=== PATIENT | male | born 1965 ===

== ENCOUNTER 2017-01-27 21:02 | Observation (INO) | payer OTHER ==
[2017-01-27 21:06] VITALS: BMI 30.3
[2017-01-27 21:26] LABS: BASO # 0.03 K/mm3 (0.0-2.0); BASO % 0.5 % (0.0-3.0); EOS # 0.4 (0.0-0.7); EOS % 5.8 % (1.5-5.0); GRAN # 1.67 (1.4-6.5); HEMATOCRIT 45.9 % (42.0-52.0); LYMPH # 3.4 (1.2-3.4); LYMPH % 54.9 % (22.0-35.0); MEAN CELL VOLUME 88.6 fl (80.0-105.0); MEAN CORPUSCULAR HEMOGLOBIN 30.1 pg (25.0-35.0); MEAN PLATELET VOLUME 10.4 fl (7.0-11.0); MONO # 0.7 (0.1-0.6); MONO % 11.8 % (1.0-6.0); RED CELL DISTRIBUTION WIDTH 14.4 % (11.5-14.5); WHITE BLOOD COUNT 6.2 10^3/ul (4.5-11.0)
[2017-01-27 21:39] LABS: ALB/GLOB RATIO 1.5 (1.1-1.8); ALKALINE PHOSPHATASE 87 U/L (38-126); ALT/SGPT 21 U/L (7-56); AST/SGOT 22 U/L (17-59); BILIRUBIN,TOTAL 0.5 mg/dL (0.2-1.3); BLOOD UREA NITROGEN 19 mg/dL (7-21); CALCIUM 9.7 mg/dL (8.4-10.5); CARBON DIOXIDE 31 mmol/L (21-33); CHLORIDE 102 mmol/L (98-107); GFR AFRICAN-AMERICAN > 60; GLUCOSE,RANDOM 120 mg/dL (70-110); POTASSIUM 4.2 mmol/L (3.6-5.0); SODIUM 142 mmol/L (132-148); TOTAL PROTEIN 7.3 g/dL (5.8-8.3)
--- NOTE | 2017-01-27 21:50 | ED PDOC ---
Arrival/HPI - General Chief Complaint: Chest Pain Time Seen by Provider: 01/27/17 21:15 Historian: Patient - History of Present Illness Narrative History of Present Illness (Text): 01/27/17 21:44 A 51 year old male, whose past medical history includes 2 cardiac stents placed 2 years ago, presents to the emergency department complaining of intermittent chest pain for 2 weeks. Patient states his pain worsened today and notes radiating pain down left arm. Patient notes mild shortness of breath but denies any fever, chills, nausea, vomiting, abdominal pain, cough or any other complaints. Patients last cardiac workup was 1 year ago. Pet Feeder: Dr. Graeme Martin Time/Duration: Other (2 weeks) Symptom Course: Worsening (today) Quality: Other Context: Home Past Medical History - Provider Review Nursing Documentation Reviewed: Yes - Infectious Disease Hx of Infectious Diseases: None - Tetanus Immunization Tetanus Immunization: Unknown - Cardiac Hx [place]: Yes - Pulmonary Hx Respiratory Disorders: No - Neurological Hx Paralysis: No - HEENT Hx HEENT Disorder: No - Renal Hx Renal Disorder: Yes Hx Kidney Stones: Yes (S/P Trasnurethral Removal) - Endocrine/Metabolic Hx Endocrine Disorders: Yes Hx Diabetes Mellitus Type 2: Yes - Hematological/Oncological Hx Blood Transfusions: No - Integumentary Hx Dermatological Disorder: No - Musculoskeletal/Rheumatological Hx Musculoskeletal Disorders: No - Gastrointestinal Hx Gastrointestinal Disorders: No - Genitourinary/Gynecological Hx Genitourinary Disorders: No - Psychiatric Hx Emotional Abuse: No Hx Physical Abuse: No Hx Substance Use: No - Past Surgical History Past Surgical History: Non-Contributing - Surgical History Hx Cardiac Catheterization: Yes - Anesthesia Hx Anesthesia: Yes Hx Anesthesia Reactions: No Hx Malignant Hyperthermia: No - Suicidal Assessment Feels Threatened In Home Enviroment: No Family/Social History - Physician Review Nursing Documentation Reviewed: Yes Family/Social History: No Known Family HX Smoking Status: Never Smoked Hx Alcohol Use: No Hx Substance Use: No Hx Substance Use Treatment: No Allergies/Home Meds Allergies/Adverse Reactions: Allergies No Known Allergies Allergy (Verified 12/16/15 10:15) Home Medications: Home Meds Medication Instructions Recorded Confirmed Insulin Detemir [Levemir Flexpen] 18 unit SC BID 08/29/14 01/27/17 Clopidogrel [Plavix] 75 mg PO DAILY 09/20/14 01/27/17 Aspirin [Aspirin EC] 81 mg PO DAILY 10/12/15 09/07/17 Canagliflozin/Metformin HCl 1 tab PO BID 12/16/15 01/27/17 [Invokamet 50-1,000 mg Tablet] Review of Systems - Physician Review All systems were reviewed & negative as marked: Yes - Review of Systems Constitutional: absent: Fevers, Night Sweats Respiratory: SOB. absent: Cough Cardiovascular: Chest Pain (radiating down left arm) Gastrointestinal: absent: Abdominal Pain, Nausea, Vomiting Physical Exam Vital Signs Reviewed: Yes Vital Signs Temp Pulse Resp BP Pulse Ox 01/27/17 21:07 98.1 F 60 19 146/84 100 Temperature: Afebrile Blood Pressure: Normal Pulse: Regular Respiratory Rate: Normal Appearance: Positive for: Well-Appearing, Non-Toxic, Comfortable Pain Distress: None Mental Status: Positive for: Alert and Oriented X 3 - Systems Exam Head: Present: Atraumatic, Normocephalic Pupils: Present: PERRL Extroacular Muscles: Present: EOMI Conjunctiva: Present: Normal Mouth: Present: Moist Mucous Membranes Neck: Present: Normal Range of Motion Respiratory/Chest: Present: Clear to Auscultation, Good Air Exchange. No: Respiratory Distress, Accessory Muscle Use Cardiovascular: Present: Regular Rate and Rhythm, Normal S1, S2. No: Murmurs Abdomen: Present: Normal Bowel Sounds. No: Tenderness, Distention, Peritoneal Signs Back: Present: Normal Inspection Upper Extremity: Present: Normal Inspection. No: Cyanosis, Edema Lower Extremity: Present: Normal Inspection. No: Edema Neurological: Present: GCS=15, CN II-XII Intact, Speech Normal Skin: Present: Warm, Dry, Normal Color. No: Rashes Psychiatric: Present: Alert, Oriented x 3, Normal Insight, Normal Concentration Medical Decision Making ED Course and Treatment: 01/27/17 21:44 Impression: A 51 year old male with chest pain radiating down left arm. Patient notes shortness of breath. Plan: -- Chest xray -- EKG -- Labs -- Urinalysis -- Reassess and disposition Progress Notes: EKG shows NSR at 57 BPM with LAD. Interpreted by me. - Lab Interpretations Lab Results: 01/27/17 21:05 01/27/17 21:05 Lab Results 01/27/17 22:41: Urine Color Yellow, Urine Appearance Clear, Urine pH 6.0, Ur Specific [place] 1.025, Urine Protein Negative, Urine Glucose (UA) >=1000, Urine Ketones Negative, Urine Blood Small H, Urine Nitrate Negative, Urine Bilirubin Negative, Urine Urobilinogen 0.2, Ur Leukocyte Esterase Negative, Urine RBC 0 - 2, Urine WBC 0 - 2, Ur Epithelial Cells 0 - 2 01/27/17 21:05: Sodium 142, Potassium 4.2, Chloride 102, Carbon Dioxide 31, Anion Gap 13, BUN 19, Creatinine 0.8, Est GFR ( Amer) > 60, Est GFR (Non- Af Amer) > 60, Random Glucose 120 H, Calcium 9.7, Magnesium 2.0, Total Bilirubin 0.5, AST 22, ALT 21, Alkaline Phosphatase 87, Lactate Dehydrogenase 423, Total Creatine Kinase 141, Troponin I < 0.01 D, NT-Pro-B Natriuret Pep 52.7, Total Protein 7.3, Albumin 4.4, Globulin 2.9, Albumin/Globulin Ratio 1.5 01/27/17 21:05: WBC 6.2 D, RBC 5.18, Hgb 15.6, Hct 45.9, MCV 88.6, MCH 30.1, MCHC 34.0, RDW 14.4, Plt Count 246, MPV 10.4, Gran % 27.0 L, Lymph % (Auto) 54.9 H, [place] % (Auto) 11.8 H, Eos % (Auto) 5.8 H, Baso % (Auto) 0.5, Gran # 1.67 , Lymph # 3.4, Cro[place] # 0.7 H, Eos # 0.4, Baso # 0.03 I have reviewed the lab results: Yes - RAD Interpretation Radiology Orders: 01/27/17 21:18 CHEST PORTABLE [RAD] Stat - Medication Orders Current Medication Orders: Aspirin (Ecotrin) 81 mg PO DAILY [facility] Last Admin: 01/28/17 10:16 Dose: 81 mg Atorvastatin Calcium (Lipitor) 20 mg PO DAILY [facility] Last Admin: 01/28/17 10:17 Dose: 20 mg Clopidogrel Bisulfate (Plavix) 75 mg PO DAILY [facility] Last Admin: 01/28/17 10:17 Dose: 75 mg Cyclobenzaprine HCl (Flexeril) 10 mg PO TID [facility] Stop: 01/29/17 18:01 Last Admin: 01/28/17 13:20 Dose: Not Given Non-Admin Reason: Patient Refused Insulin Detemir (Levemir) 18 unit SC Q12 [facility] Last Admin: 01/28/17 10:24 Dose: Insulin Human Lispro (Humalog Med) 0 units SC ACHS [facility] PRN Reason: Protocol Last Admin: 01/28/17 12:00 Dose: Not Given Non-Admin Reason: Blood Sugar Parameter Metoprolol Succinate (Toprol Xl) 25 mg PO DAILY [facility] Last Admin: 01/28/17 10:19 Dose: Naproxen (Anaprox Ds) 550 mg PO BID [facility] Last Admin: 01/28/17 10:25 Dose: Non-Formulary Medication (Canagliflozin/Metformin Hcl [Invokamet 50-1,000 Mg Tablet]) 1 tab PO BID [facility] Last Admin: 01/28/17 10:24 Dose: - Scribe Statement The provider has reviewed the documentation as recorded by the Antioneibalysa Ponce Provider Scribe Attestation: All medical record entries made by the Scribe were at my direction and personally dictated by me. I have reviewed the chart and agree that the record accurately reflects my personal performance of the history, physical exam, medical decision making, and the department course for this patient. I have also personally directed, reviewed, and agree with the discharge instructions and disposition. Disposition/Present on Arrival - Present on Arrival Any Indicators Present on Arrival: No History of DVT/PE: No History of Uncontrolled Diabetes: No Urinary Catheter: No History of Decub. Ulcer: No History Surgical Site Infection Following: None - Disposition Have Diagnosis and Disposition been Completed?: Yes Diagnosis: Chest pain Disposition: HOSPITALIZED Disposition Time: 22:30 Patient Plan: Admission, Telemetry Condition: STABLE
[2017-01-27 21:55] LABS: TROPONIN I < 0.01 ng/mL
[2017-01-27 22:48] LABS: URINE BILIRUBIN NEGATIVE (NEGATIVE); URINE BLOOD SMALL (NEGATIVE); URINE GLUCOSE (UA) >=1000 mg/dL (NEGATIVE); URINE KETONE NEGATIVE (NEGATIVE); URINE LEUKOCYTE ESTERASE NEGATIVE Leu/uL (NEGATIVE); URINE PROTEIN NEGATIVE mg/dL (<30 mg/dL); URINE UROBILINOGEN 0.2 E.U./dL (<1 E.U./dL)
[2017-01-27 22:54] LABS: URINE COLOR YELLOW (YELLOW)
[2017-01-27 22:55] LABS: URINE APPEARANCE CLEAR (CLEAR)
[2017-01-27 22:59] LABS: URINE EPITHELIAL CELLS 0 - 2 /hpf (0-5); URINE RBC 0 - 2 /hpf (0-2); URINE WBC 0 - 2 /hpf (0-6)
--- NOTE | 2017-01-28 00:13 | CP.PCM.HP ---
<CELESTE VELEZ - Last Filed: 01/28/17 02:32> History of Present Illness - History of Present Illness History of Present Illness: Celeste Velez, PGY1, H&P for Dr Gómez: CC: neck pain 49M with PMH CAD, s/p [place] with stentx3, DM, HLD, HTN, presents for neck pain x 1 week. 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 The pain is aggravated by neck movements, denies relieving factors. In ED, trop neg x1, EKG NSR, no acute ST changes. Pt admitted for obs for cp, due to extensive cardiac history. Cardio: Mario PMD: Alecia Echavarria PMH: CAD, s/p [place] with stentx3, DM, HLD, HTN PSH: denies ALl: NKA FH: works as combatant diver officer. Lives with brother in apartment. smokes 1 ppd x 1 yr. denies alcohol or drug use. Present on Admission - Present on Admission Any Indicators Present on Admission: No History of DVT/PE: No History of Uncontrolled Diabetes: No Urinary Catheter: No Decubitus Ulcer Present: No History Surgical Site Infection Following: None Review of Systems - Review of Systems All systems: reviewed and no additional remarkable complaints except Review of Systems: as per hpi Past Patient History - Infectious Disease Hx of Infectious Diseases: None - Tetanus Immunizations Tetanus Immunization: Unknown - Past Medical History & Family History Past Medical History?: Yes - Past Social History Smoking Status: Never Smoked - CARDIAC Hx Heart Attack: Yes - PULMONARY Hx Respiratory Disorders: No - NEUROLOGICAL Hx Paralysis: No - HEENT Hx HEENT Problems: No - RENAL Hx Chronic Kidney Disease: Yes Hx Kidney Stones: Yes (S/P Trasnurethral Removal) - ENDOCRINE/METABOLIC Hx Endocrine Disorders: Yes Hx Diabetes Mellitus Type 2: Yes - HEMATOLOGICAL/ONCOLOGICAL Hx Blood Transfusions: No - INTEGUMENTARY Hx Dermatological Problems: No - MUSCULOSKELETAL/RHEUMATOLOGICAL Hx Musculoskeletal Disorders: No - GASTROINTESTINAL Hx Gastrointestinal Disorders: No - GENITOURINARY/GYNECOLOGICAL Hx Genitourinary Disorders: No - PSYCHIATRIC Hx Emotional Abuse: No Hx Physical Abuse: No Hx Substance Use: No - SURGICAL HISTORY Hx Cardiac Catheterization: Yes - ANESTHESIA Hx Anesthesia: Yes Hx Anesthesia Reactions: No Hx Malignant Hyperthermia: No Meds Allergies/Adverse Reactions: Allergies Allergy/AdvReac Type Severity Reaction Status Date / Time No Known Allergies Allergy Verified 12/16/15 10:15 Physical Exam - Constitutional Appears: Non-toxic, Older Than Stated Age - Head Exam Head Exam: ATRAUMATIC, NORMOCEPHALIC - Eye Exam Eye Exam: EOMI, Normal appearance, PERRL. absent: Nystagmus, Periorbital swelling Pupil Exam: NORMAL ACCOMODATION, PERRL - ENT Exam ENT Exam: Mucous Membranes Moist - Neck Exam Neck exam: Positive for: Normal Inspection. Negative for: Lymphadenopathy, Thyromegaly Additional comments: + left sided neck paraspinal muscle spasm, + tissue texture changes, hypertonic / mild asymmetry noted on L neck musculature, no ROM restriction noted, + tenderness on L side. reproducible symptoms with palpation - Respiratory Exam Respiratory Exam: Clear to Auscultation Bilateral, NORMAL BREATHING PATTERN. absent: Chest Wall Tenderness, Rales, Rhonchi, Wheezes - Cardiovascular Exam Cardiovascular Exam: Bradycardia, REGULAR RHYTHM, +S1, +S2. absent: Tachycardia , Systolic Murmur - GI/Abdominal Exam GI & Abdominal Exam: Normal Bowel Sounds, Soft. absent: Firm, Hypoactive Bowel Sounds, Pulsatile Mass, Rebound - Extremities Exam Extremities exam: Negative for: calf tenderness, pedal edema - Neurological Exam Neurological exam: Alert, Oriented x3 - Psychiatric Exam Psychiatric exam: Normal Affect - Skin Skin Exam: Dry, Warm Results - Vital Signs Recent Vital Signs: Last Vital Signs Temp 98.1 F 01/27/17 21: Pulse 60 01/27/17 21:07 Resp 19 01/27/17 21:07 BP 146/84 01/27/17 21:07 Pulse Ox 100 01/27/17 21:07 - Labs Result Diagrams: 01/27/17 21:05 01/27/17 21:05 Assessment & Plan - Assessment and Plan (Free Text) Assessment: 51M with PMH MIx 3 stents, DM, HTN, HLD, presents for chest pain, r/o ACS, likely musculoskeletal in origin. Plan: Chest pain: - likely musculoskeletal vs throacic outlet syndrome vs ACS vs PE (unlikely) - Observation - + reprodicuble cp on PE, + neck paraspinal muscle spasm - Will give flexeril and naproxen - C/w home med asa 81, plavix, lipitor, BB - Since pt has extensive cardiac hx, will f.u serial trops w ekg - Cardio c/s DM: - Accucheck with Med Regular Insulin Coverage; c/w home levemir - ADA diet - HgA1C - hold home oral antidiabetics HTN: - c/w home BB HLD: - c/w statin - f/u lipid panel Discussed w Dr Rico Velez, PGY1 - Date & Time Date: 01/28/17 Time: 02:38 <Rock Gómez - Last Filed: 01/28/17 06:47> Results - Vital Signs Recent Vital Signs: Last Vital Signs Temp 98.4 F 01/28/17 06:00 Pulse 54 L 01/28/17 06:00 Resp 18 01/28/17 06:00 BP 114/77 01/28/17 06:00 Pulse Ox 99 01/28/17 06:00 - Labs Result Diagrams: 01/27/17 21:05 01/27/17 21:05 Labs: Laboratory Results - last 24 hr 01/28/17 03:15 Lactate Dehydrogenase 333 Total Creatine Kinase 114 Troponin I < 0.01 Triglycerides 127 Cholesterol 124 L LDL Cholesterol Direct 85 HDL Cholesterol 26 L
[2017-01-28] MEDS: Naproxen 550 mg Tab PO SCH ×2 (00:51→10:25)
[2017-01-28 01:36] VITALS: O2SAT 99
[2017-01-28 04:01] LABS: CHOLESTEROL 124 mg/dL (130-200)
[2017-01-28 04:21] LABS: TROPONIN I < 0.01 ng/mL
[2017-01-28] MEDS: Insulin Lispro (humaLOG) MEDIUM Coverage SC SCH ×3 (08:17→16:30)
--- NOTE | 2017-01-28 08:24 | RAD ---
HISTORY: Chest pain. Portable study 21:25. COMPARISON: 08/29/2014. FINDINGS: LUNGS: No active pulmonary disease. PLEURA: No significant pleural effusion identified, no pneumothorax apparent. CARDIOVASCULAR: No radiographic findings to suggest acute or significant cardiovascular disease. OSSEOUS STRUCTURES: No significant abnormalities. VISUALIZED UPPER ABDOMEN: Normal. OTHER FINDINGS: None. IMPRESSION: No active disease. No significant interval change compared to the prior examination(s).
[2017-01-28 09:53] LABS: TROPONIN I < 0.01 ng/mL
[2017-01-28] MEDS ORDERED: Metoprolol Succinate 25 mg XL Tab PO SCH (10:00)
[2017-01-28] MEDS ORDERED: CANAGLIFLOZIN PO SCH (10:00)
[2017-01-28] MEDS ORDERED: Insulin Detemir 100 units/ml Vial (Levemir) SC SCH (10:00)
[2017-01-28] MEDS ORDERED: [UNRECOGNIZED DRUG - OTHER] PO SCH (10:00)
[2017-01-28] MEDS ORDERED: METFORMIN HCL PO SCH (10:00)
[2017-01-28 16:25] LABS: TROPONIN I < 0.01 ng/mL
--- NOTE | 2017-01-28 16:40 | CP.PCM.DIS ---
<Santosh Blakely - Last Filed: 01/28/17 16:37> Provider - Provider Date of Admission: 01/27/17 22:48 Attending physician: Aparna Gómez MD Primary care physician: Michel Ferraro DNP, [employer] Time Spent in preparation of Discharge (in minutes): 45 Hospital Course - Lab Results Lab Results: Most Recent Lab Values WBC 6.2 10^3/ul (4.5-11.0) D 01/27/17 21:05 RBC 5.18 10^6/uL (3.5-6.1) 01/27/17 21:05 Hgb 15.6 g/dL (14.0-18.0) 01/27/17 21:05 Hct 45.9 % (42.0-52.0) 01/27/17 21:05 MCV 88.6 fl (80.0-105.0) 01/27/17 21:05 MCH 30.1 pg (25.0-35.0) 01/27/17 21:05 MCHC 34.0 g/dl (31.0-37.0) 01/27/17 21:05 RDW 14.4 % (11.5-14.5) 01/27/17 21:05 Plt Count 246 10^3/uL (120.0-450.0) 01/27/17 21:05 MPV 10.4 fl (7.0-11.0) 01/27/17 21:05 Gran % 27.0 % (50.0-68.0) L 01/27/17 21:05 Lymph % (Auto) 54.9 % (22.0-35.0) H 01/27/17 21:05 Bath % (Auto) 11.8 % (1.0-6.0) H 01/27/17 21:05 Eos % (Auto) 5.8 % (1.5-5.0) H 01/27/17 21:05 Baso % (Auto) 0.5 % (0.0-3.0) 01/27/17 21:05 Gran # 1.67 (1.4-6.5) 01/27/17 21:05 Lymph # 3.4 (1.2-3.4) 01/27/17 21:05 Bath # 0.7 (0.1-0.6) H 01/27/17 21:05 Eos # 0.4 (0.0-0.7) 01/27/17 21:05 Baso # 0.03 K/mm3 (0.0-2.0) 01/27/17 21:05 Sodium 142 mmol/L (132-148) 01/27/17 21:05 Potassium 4.2 mmol/L (3.6-5.0) 01/27/17 21:05 Chloride 102 mmol/L (98-107) 01/27/17 21:05 Carbon Dioxide 31 mmol/L (21-33) 01/27/17 21:05 Anion Gap 13 (10-20) 01/27/17 21:05 BUN 19 mg/dL (7-21) 01/27/17 21:05 Creatinine 0.8 mg/dL (0.5-1.4) 01/27/17 21:05 Est GFR ( Amer) > 60 01/27/17 21:05 Est GFR (Non-Af Amer) > 60 01/27/17 21:05 POC Glucose (mg/dL) 94 mg/dL (65-110) 01/28/17 11:39 Random Glucose 120 mg/dL (70-110) H 01/27/17 21:05 Hemoglobin A1c 6.6 % (4.2-6.5) H 01/28/17 03:15 Calcium 9.7 mg/dL (8.4-10.5) 01/27/17 21:05 Magnesium 2.0 mg/dL (1.7-2.2) 01/27/17 21:05 Total Bilirubin 0.5 mg/dL (0.2-1.3) 01/27/17 21:05 AST 22 U/L (17-59) 01/27/17 21:05 ALT 21 U/L (7-56) 01/27/17 21:05 Alkaline Phosphatase 87 U/L (38-126) 01/27/17 21:05 Lactate Dehydrogenase 332 U/L (333-699) L 01/28/17 15:42 Total Creatine Kinase 109 U/L (35-230) 01/28/17 15:42 Troponin I < 0.01 ng/mL 01/28/17 15:42 NT-Pro-B Natriuret Pep 52.7 pg/mL (0-450) 01/27/17 21:05 Total Protein 7.3 g/dL (5.8-8.3) 01/27/17 21:05 Albumin 4.4 g/dL (3.0-4.8) 01/27/17 21:05 Globulin 2.9 gm/dL 01/27/17 21:05 Albumin/Globulin Ratio 1.5 (1.1-1.8) 01/27/17 21:05 Triglycerides 127 mg/dL (35-160) 01/28/17 03:15 Cholesterol 124 mg/dL (130-200) L 01/28/17 03:15 LDL Cholesterol Direct 85 mg/dL (0-129) 01/28/17 03:15 HDL Cholesterol 26 mg/dL (29-60) L 01/28/17 03:15 Urine Color Yellow (YELLOW) 01/27/17 22:41 Urine Appearance Clear (CLEAR) 01/27/17 22:41 Urine pH 6.0 (4.7-8.0) 01/27/17 22:41 Ur Specific [place] 1.025 (1.005-1.035) 01/27/17 22:41 Urine Protein Negative mg/dL (<30 mg/dL) 01/27/17 22:41 Urine Glucose (UA) >=1000 mg/dL (NEGATIVE) 01/27/17 22:41 Urine Ketones Negative mg/dL (NEGATIVE) 01/27/17 22:41 Urine Blood Small (NEGATIVE) H 01/27/17 22:41 Urine Nitrate Negative (NEGATIVE) 01/27/17 22:41 Urine Bilirubin Negative (NEGATIVE) 01/27/17 22:41 Urine Urobilinogen 0.2 E.U./dL (<1 E.U./dL) 01/27/17 22:41 Ur Leukocyte Esterase Negative Soraya/uL (NEGATIVE) 01/27/17 22:41 Urine RBC 0 - 2 /hpf (0-2) 01/27/17 22:41 Urine WBC 0 - 2 /hpf (0-6) 01/27/17 22:41 Ur Epithelial Cells 0 - 2 /hpf (0-5) 01/27/17 22:41 - Hospital Course Hospital Course: 49M with PMH CAD, s/p [place] with stentx3, DM, HLD, HTN, presents for neck pain x 1 week. 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 The pain is aggravated by neck movements, denies relieving factors. In ED, trop neg x1, EKG NSR, no acute ST changes. Pt admitted for obs for cp, due to extensive cardiac history. 01/28: Tropx3 (-), total CK/lactate (-), kbqy=859, LDL85, HDL26, A1c=6.6 Patient arm pain has improved significantly and no longer complaining of chest pain or associated symptoms. Patient advised to follow up with Dr. Martin as an outpatient and his PMD within one week. Discharge Exam - Head Exam Head Exam: ATRAUMATIC, NORMOCEPHALIC - Eye Exam Eye Exam: EOMI, Normal appearance, PERRL Pupil Exam: NORMAL ACCOMODATION, PERRL. absent: Irregular - ENT Exam ENT Exam: Mucous Membranes Moist - Respiratory Exam Respiratory Exam: Clear to PA & Lateral, NORMAL BREATHING PATTERN, UNREMARKABLE. absent: Accessory Muscle Use, Chest Wall Tenderness, Respiratory Distress - Cardiovascular Exam Cardiovascular Exam: REGULAR RHYTHM, RRR, +S1, +S2. absent: Gallop, Rubs - GI/Abdominal Exam GI & Abdominal Exam: Normal Bowel Sounds, Unremarkable - Extremities Exam Extremities exam: full ROM - Neurological Exam Neurological exam: Alert, CN II-XII Intact - Psychiatric Exam Psychiatric exam: Normal Affect, Normal Mood - Skin Skin Exam: Dry, Intact, Normal Color Discharge Plan - Discharge Medications Prescriptions: Cyclobenzaprine [Cyclobenzaprine HCl] 10 mg PO TID PRN #12 tab PRN Reason: Muscle Spasm - Follow Up Plan Condition: GOOD Disposition: HOME/ ROUTINE Instructions: Chest Pain (DC) Additional Instructions: Patient is to follow up with PMD within 1 week. Patient is to follow up with Dr. Martin as outpatient within 1 week. Patient is to take Motrin or Naprosyn OTC for pain. Patient is to return to E.D. for any new or worsening symptoms. Referrals: Michel Ferraro DNP, APN [Primary Care Provider] - <Aparna Gómez - Last Filed: 02/05/17 17:54> Provider - Provider Date of Admission: 01/27/17 22:48 Attending physician: Aparna Gómez MD Primary care physician: Michel Ferraro DNP, BRITTANY Hospital Course - Lab Results Lab Results: Most Recent Lab Values WBC 6.2 10^3/ul (4.5-11.0) D 01/27/17 21:05 RBC 5.18 10^6/uL (3.5-6.1) 01/27/17 21:05 Hgb 15.6 g/dL (14.0-18.0) 01/27/17 21:05 Hct 45.9 % (42.0-52.0) 01/27/17 21:05 MCV 88.6 fl (80.0-105.0) 01/27/17 21:05 MCH 30.1 pg (25.0-35.0) 01/27/17 21:05 MCHC 34.0 g/dl (31.0-37.0) 01/27/17 21:05 RDW 14.4 % (11.5-14.5) 01/27/17 21:05 Plt Count 246 10^3/uL (120.0-450.0) 01/27/17 21:05 MPV 10.4 fl (7.0-11.0) 01/27/17 21:05 Gran % 27.0 % (50.0-68.0) L 01/27/17 21:05 Lymph % (Auto) 54.9 % (22.0-35.0) H 01/27/17 21:05 Bath % (Auto) 11.8 % (1.0-6.0) H 01/27/17 21:05 Eos % (Auto) 5.8 % (1.5-5.0) H 01/27/17 21:05 Baso % (Auto) 0.5 % (0.0-3.0) 01/27/17 21:05 Gran # 1.67 (1.4-6.5) 01/27/17 21:05 Lymph # 3.4 (1.2-3.4) 01/27/17 21:05 Bath # 0.7 (0.1-0.6) H 01/27/17 21:05 Eos # 0.4 (0.0-0.7) 01/27/17 21:05 Baso # 0.03 K/mm3 (0.0-2.0) 01/27/17 21:05 Sodium 142 mmol/L (132-148) 01/27/17 21:05 Potassium 4.2 mmol/L (3.6-5.0) 01/27/17 21:05 Chloride 102 mmol/L (98-107) 01/27/17 21:05 Carbon Dioxide 31 mmol/L (21-33) 01/27/17 21:05 Anion Gap 13 (10-20) 01/27/17 21:05 BUN 19 mg/dL (7-21) 01/27/17 21:05 Creatinine 0.8 mg/dL (0.5-1.4) 01/27/17 21:05 Est GFR ( Amer) > 60 01/27/17 21:05 Est GFR (Non-Af Amer) > 60 01/27/17 21:05 POC Glucose (mg/dL) 102 mg/dL (65-110) 01/28/17 16:11 Random Glucose 120 mg/dL (70-110) H 01/27/17 21:05 Hemoglobin A1c 6.6 % (4.2-6.5) H 01/28/17 03:15 Calcium 9.7 mg/dL (8.4-10.5) 01/27/17 21:05 Magnesium 2.0 mg/dL (1.7-2.2) 01/27/17 21:05 Total Bilirubin 0.5 mg/dL (0.2-1.3) 01/27/17 21:05 AST 22 U/L (17-59) 01/27/17 21:05 ALT 21 U/L (7-56) 01/27/17 21:05 Alkaline Phosphatase 87 U/L (38-126) 01/27/17 21:05 Lactate Dehydrogenase 332 U/L (333-699) L 01/28/17 15:42 Total Creatine Kinase 109 U/L (35-230) 01/28/17 15:42 Troponin I < 0.01 ng/mL 01/28/17 15:42 NT-Pro-B Natriuret Pep 52.7 pg/mL (0-450) 01/27/17 21:05 Total Protein 7.3 g/dL (5.8-8.3) 01/27/17 21:05 Albumin 4.4 g/dL (3.0-4.8) 01/27/17 21:05 Globulin 2.9 gm/dL 01/27/17 21:05 Albumin/Globulin Ratio 1.5 (1.1-1.8) 01/27/17 21:05 Triglycerides 127 mg/dL (35-160) 01/28/17 03:15 Cholesterol 124 mg/dL (130-200) L 01/28/17 03:15 LDL Cholesterol Direct 85 mg/dL (0-129) 01/28/17 03:15 HDL Cholesterol 26 mg/dL (29-60) L 01/28/17 03:15 TSH 3rd Generation 1.08 mIU/mL (0.46-4.68) 01/28/17 15:42 Urine Color Yellow (YELLOW) 01/27/17 22:41 Urine Appearance Clear (CLEAR) 01/27/17 22:41 Urine pH 6.0 (4.7-8.0) 01/27/17 22:41 Ur Specific [place] 1.025 (1.005-1.035) 01/27/17 22:41 Urine Protein Negative mg/dL (<30 mg/dL) 01/27/17 22:41 Urine Glucose (UA) >=1000 mg/dL (NEGATIVE) 01/27/17 22:41 Urine Ketones Negative mg/dL (NEGATIVE) 01/27/17 22:41 Urine Blood Small (NEGATIVE) H 01/27/17 22:41 Urine Nitrate Negative (NEGATIVE) 01/27/17 22:41 Urine Bilirubin Negative (NEGATIVE) 01/27/17 22:41 Urine Urobilinogen 0.2 E.U./dL (<1 E.U./dL) 01/27/17 22:41 Ur Leukocyte Esterase Negative Soraya/uL (NEGATIVE) 01/27/17 22:41 Urine RBC 0 - 2 /hpf (0-2) 01/27/17 22:41 Urine WBC 0 - 2 /hpf (0-6) 01/27/17 22:41 Ur Epithelial Cells 0 - 2 /hpf (0-5) 01/27/17 22:41 Attending/Attestation - Attestation I have personally seen and examined this patient.: Yes I have fully participated in the care of the patient.: Yes I have reviewed all pertinent clinical information, including history, physical exam and plan: Yes Notes (Text): I have seen and examined the patient at bedside. Agree with the above note with the following additions/ exceptions: Briefly this is 49 year old male with history of CAD, s/p stents x3, DM-2, HTN, dyslipidemia who presented for evaluation of left sided chest pain. EKG and troponins are negative. As per patient, he usually follow up with Dr Martin in his office. He has an appointment with him in 2 days. Patients arm painhas resolved. He was explained that he needs stress test as an outpatient. Upon discharge patient will follow up with Dr Ferraro and Dr Martin. Dr Aparna Gómez
[2017-01-28 17:27] VITALS: BP 128/85; PULSE 51; RESP 18; TEMP 99.3
--- NOTE | 2017-01-28 20:55 | CARD ---
APPROVED REPORT EKG Measurement Heart [id number] AL [id number] <Conclusion> Sinus bradycardia Inferior-posterior infarct, age undetermined Abnormal ECG
--- NOTE | 2017-01-31 13:32 | CARD ---
APPROVED REPORT EKG Measurement Heart [id number] <Conclusion> Sinus bradycardia Inferior-posterior infarct, age undetermined Abnormal ECG
== END 2017-01-28 18:00 | disposition home or self-care (01) ==
LOC: ED 21:02 → ERH 22:48 → 2RNO 01-28 01:56
PROVIDERS: ADMIT Internal Medicine; ATTEND Hospitalist
DX: R07.89 Other chest pain (principal); M54.2 Cervicalgia; I12.9 Hypertensive chronic kidney disease with stage 1 through stage 4 chronic kidney disease, or unspecified chronic kidney disease; E11.22 Type 2 diabetes mellitus with diabetic chronic kidney disease; N18.9 Chronic kidney disease, unspecified; I25.10 Atherosclerotic heart disease of native coronary artery without angina pectoris; I25.2 Old myocardial infarction; Z95.5 Presence of coronary angioplasty implant and graft; Z79.4 Long term (current) use of insulin; Z79.82 Long term (current) use of aspirin; E78.5 Hyperlipidemia, unspecified
CPT/HCPCS: 36415; 71010; 80053; 80061; 81001; 82550; 82948; 83036; 83615; 83735; 83880; 84443; 84484; 85025; 93005; 99285; G0378